=== PATIENT | male | born 1980 ===

== ENCOUNTER 2018-03-19 23:43 | Emergency (ER) | payer SELFPAY ==
[2018-03-20 00:28] LABS: Hematocrit 42 % (42-52); Hemoglobin 14.7 g/dl (14.0-18.0); Mean Corpuscular HGB Conc 35 g/dl (31-36); Mean Corpuscular Hemoglobin 32 pg (27-31); Mean Corpuscular Volume 93 fL (80-94); Mean Platelet Volume 9.9 fL (7.4-10.4); Platelet Count 227 10^3/ul (150-450); Red Blood Count 4.59 10^6/ul (4.00-5.40); Red Cell Distribution Width 13 % (10.5-15); White Blood Count 8.7 10^3/ul (3.5-10.8)
--- NOTE | 2018-03-20 00:34 | ED ---
Respiratory - HPI Summary HPI Summary: This patient is a 38 year old M presenting to [facility] with a chief complaint of possible carbon monoxide poisoning since earlier today. 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 Around 23:00, carbon monoxide alarms were going off. The fire department showed up and found 325 ppm of carbon monoxide. The patient rates the pain 7/10 in severity. Patient reports headache, nausea, and dizziness starting around 17:30-18:00 today. He smokes cigarettes. - History of Current Complaint Chief Complaint: EDGeneral Stated Complaint: CO EXPOSURE Time Seen by Provider: 03/20/18 00:03 Hx Obtained From: Patient Onset/Duration: Sudden Onset, Lasting Hours Initial Severity: Moderate Current Severity: Moderate Pain Intensity: 7 Associated Signs and Symptoms: Dizziness - Allergy/Home Medications Allergies/Adverse Reactions: Allergies Allergy/AdvReac Type Severity Reaction Status Date / Time No Known Allergies Allergy Verified 03/19/18 23:51 Home Medications: Home Medications NK [No Home Medications Reported] 03/20/18 [History Confirmed 03/20/18] PMH/Surg Hx/FS Hx/Imm Hx Endocrine/Hematology History: Denies: Hx Diabetes Cardiovascular History: Denies: Hx Coronary Artery Disease Respiratory History: Denies: Hx Asthma Infectious Disease History: No Infectious Disease History: Denies: Traveled Outside the [place] in Last 30 Days - Family History Known Family History: Positive: Cardiac Disease, Diabetes, Other - Asthma - Social History Alcohol Use: Occasionally Substance Use Type: Reports: None Smoking Status (MU): Heavy Every Day Tobacco Smoker Review of Systems Positive: Nausea Neurological: Other - Dizziness Positive: Headache All Other Systems Reviewed And Are Negative: Yes Physical Exam - Summary Physical Exam Summary: Appearance: Well-appearing, Well-nourished, lying in bed comfortably Skin: Warm, dry, no obvious rash Eyes: sclera anicteric, no conjunctival pallor ENT: mucous membranes moist, pharynx appears normal Neck: Supple, nontender Respiratory: Clear to auscultation, no signs of respiratory distress Cardiovascular: Normal S1, S2. No murmurs. Normal distal pulses in tibial and radial bilaterally. Abdomen: Soft, nontender, normal active bowel sounds present Musculoskeletal: Normal, Strength/ROM Intact Neurological: A&Ox3, awake and alert, mentation is normal, speech is fluent and appropriate Psychiatric: affect is normal, does not appear anxious or depressed Triage Information Reviewed: Yes Vital Signs On Initial Exam: Initial Vitals Temp Pulse Resp BP Pulse Ox 98.6 F 102 20 170/101 99 03/19/18 23:51 03/19/18 23:51 03/19/18 23:51 03/19/18 23:51 03/19/18 23:51 Vital Signs Reviewed: Yes Diagnostics - Vital Signs Vital Signs Temp Pulse Resp BP Pulse Ox 03/20/18 00:21 101 98 03/19/18 23:51 98.6 F 102 20 170/101 99 - Laboratory Lab Results: Lab Results 03/20/18 Range/Units 00:21 WBC 8.7 (3.5-10.8) 10^3/ul RBC 4.59 (4.00-5.40) 10^6/ul Hgb 14.7 (14.0-18.0) g/dl Hct 42 (42-52) % MCV 93 (80-94) fL MCH 32 H (27-31) pg MCHC 35 (31-36) g/dl RDW 13 (10.5-15) % Plt Count 227 (150-450) 10^3/ul MPV 9.9 (7.4-10.4) fL Neut % (Auto) Pending Lymph % (Auto) Pending [place] % (Auto) Pending Eos % (Auto) Pending Baso % (Auto) Pending Absolute Neuts (auto) Pending Absolute Lymphs (auto) Pending Absolute Monos (auto) Pending Absolute Eos (auto) Pending Absolute Basos (auto) Pending Absolute Nucleated RBC Pending Nucleated RBC % Pending Result Diagrams: 03/20/18 00:21 03/20/18 00:21 Lab Statement: Any lab studies that have been ordered have been reviewed, and results considered in the medical decision making process. - EKG 00:30 Cardiac Rate: NL - 98 BPM EKG Rhythm: Sinus Rhythm Summary of EKG Findings: ST elev, probable normal early repol pattern Disposition - Course Course Of Treatment: This patient is a 38 year old M presenting to [facility] with a chief complaint of possible carbon monoxide poisoning since earlier today. He was working with a [employer] power saw today from 07:00 to 21:00. Around 23:00, carbon monoxide alarms were going off. The fire department showed up and found 325 ppm of carbon monoxide. The patient rates the pain 7/10 in severity. Patient reports headache, nausea, and dizziness starting around 17:30-18:00 today. He smokes cigarettes. The patient's workup was unremarkable. I informed the patient of the latent effects of CO and to report back if he observed any of these symptoms. The patient understands and agrees. - Diagnoses Provider Diagnoses: Carbon monoxide poisoning Discharge - Sign-Out/Discharge Documenting (check all that apply): Patient Departure - D/C - Discharge Plan Condition: Good Disposition: HOME Patient Education Materials: Carbon Monoxide Poisoning (ED) Referrals: Chioma CORDOVA,Rosemary [Primary Care Provider] - Additional Instructions: Sometimes the consequences of a carbon monoxide exposure do not become evident or present themselves for several weeks or even months after the exposure (the average is 3 weeks). So if you develop symptoms like trouble concentrating, headaches, visual problems you should alert your employer and get in to see an occupational health nursing director. - Billing Disposition and Condition Condition: GOOD Disposition: Home - Attestation Statements Document Initiated by Bobby: Yes Documenting Scribe: Regan Guevara Provider For Whom Bobby is Documenting (Include Credential): Mike Petersen MD Scribe Attestation: IRegan, renayed for Mike Petersen MD on 03/20/18 at 0532. Scribe Documentation Reviewed: Yes Provider Attestation: The documentation as recorded by the Regan hoover accurately reflects the service I personally performed and the decisions made by me, Mike Petersen MD Status of Scribe Document: Viewed
[2018-03-20 00:44] LABS: BUN/Creatinine Ratio 14.9 (8-20); Calcium 10.1 mg/dL (8.6-10.3); EGFR Non-African American 89.8 (>60)
[2018-03-20 00:58] LABS: ABS Basophils 0.1 10^3/ul (0-0.2); ABS Eosinophils 0.3 10^3/ul (0-0.6); ABS Lymphocytes 2.7 10^3/ul (1.0-4.8); ABS Monocytes 0.6 10^3/ul (0-0.8); ABS Neutrophils 5.1 10^3/ul (1.5-7.7); ABS Nucleated RBC 0 10^3/ul; Lymphocyte % 30.7 %; Nucleated Red Blood Cells % 0
== END 2018-03-20 04:27 | disposition home or self-care (01) ==
LOC: ED 23:43
DX: T58.11XA Toxic effect of carbon monoxide from utility gas, accidental (unintentional), initial encounter (principal); R51 Headache; R11.0 Nausea; R42 Dizziness and giddiness; Y92.9 Unspecified place or not applicable; F17.200 Nicotine dependence, unspecified, uncomplicated
CPT/HCPCS: 36415; 80048; 82375; 84484; 85025; 93005; 99283